=== PATIENT | female | born 1990 | race Caucasian/White ===

== ENCOUNTER 2022-01-26 02:10 | Day surgery (SDC) | payer SELFPAY ==
[2022-01-21 14:11] VITALS: BMI 21.7
--- NOTE | 2022-01-21 14:18 | PC.NURSE ---
Report to the Outpatient Waiting Room, entrance under the green pavilion located off [facility], at time 0830 on date 01/26/22. OR Time: 1030. - You and your visitor will be asked a series of questions to screen for COVID 19 for your protection. - Only one visitor is allowed at this time. - The patient visitor is requested to leave or wait in car when not with patient. - A mask is required within the hospital. Patients may have clear liquids (water, carbonated beverages, clear teas, apple juice) until 3 hours prior to surgery with a maximum of 20 ounces. - No food from midnight until time of surgery Take the following medications with a SIP of water the morning of surgery: KEPPRA Medications to discontinue per physician: N/A Date to take last dose: N/A Please no make-up, nail estonian, hairspray, perfume, deodorant, or body powder the day of surgery. No jewelry (including any body piercings) or valuables the day of surgery, leave them at home. Please take a shower or bath the night before, or the morning of, surgery with an antibacterial soap. Wear comfortable, loose fitting clothing. - Jewelry must be removed prior to entering the operating room. Rings and piercings that are not removed may be cut off. - The hospital will not accept responsibility for valuables. - Please leave all valuables, including medications, at home the day of surgery. If you are going home after surgery, a licensed spotter driver must drive you home. - NO public transportation without another adult. - We recommend that an adult stay with you for 24 hours following discharge. - We also recommend that you do not drive, make important decision, drink alcoholic beverages, or take any drugs that were not prescribed by your health care provider for at least 24 hours after your discharge time. Follow any additional instructions given to you from your surgeon. If you or anyone in your household have experienced Covid symptoms in the past week, please notify your surgeon or the nurse liaison at the phone number below for possible testing. Telephone instructions given to BERNA BEE and asked if any additional questions and then verbalized understanding. Patient advised to call surgeon office or pre surgery nurse liaison [phone] if any additional questions.
--- NOTE | 2022-01-25 18:05 | PM.IMHP ---
H&P: HPI History of Present Illness Date/Time: 01/26/22 09:10 Chief Complaint: Retained/malpositioned IUD Narrative: Mora is a 31yo P1001 who presented as a new patient for IUD removal. She is wanting to get again. She has been recently diagnosed w/?epilepsy; new in the last 2-3yrs. She is on Keppra BID and that controls her seizures; had 3 total. Still follows w/ neuro. 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 She had this with her last and did not have any issues. No current cardiac issues; still follows with cards and is due for valve replacement in 2024. She denies any issues w/ the IUD, still have regular cycles. No pain. The IUD was attempted to be removed (strings were visible) but was retained. US showed an arm of the IUD is noted to be in the lower uterine segment myometrium with the remaining IUD in the cervical canal. Review of Systems Review of Systems: All systems reviewed & are unremarkable except as noted in HPI and below (HPI) [facility] Past Medical History Medical History Epilepsy Infective endocarditis Surgical History Surgical History Heart valve replaced Social History Social History Tobacco type: e-cigarettes/vaping Alcohol intake: current Drinks per week: 7 Substance use: current Substance use type: marijuana Living arrangements: with family Spiritual care concerns: No Meds Home Medications and Allergies Home Medications Medication Instructions Recorded Confirmed Type levetiracetam 500 mg tablet 250 mg PO Q12H 12/18/21 01/26/22 History Allergies Allergy/AdvReac Type Severity Reaction Status Date / Time No Known Allergies Allergy Verified 01/26/22 08:46 Exam Const: General: cooperative, healthy appearing, comfortable and no acute distress Resp: Effort & Inspection: normal respiratory effort Cardio: Rate: regular rate GI: Inspection: normal to inspection and non-distended GI Palp: Yes Soft to palpation : Other: deferred to OR Skin: General skin exam: normal color Neuro: General: patient oriented x3 Extrem: General: normal to inspection Psych: Appearance: grossly normal Affect: normal affect Attitude: cooperative Assessment and Plan Assessment and plan (1) Attempted IUD removal, unsuccessful: Code(s): Z53.8 - Procedure and treatment not carried out for other reasons; Z97.5 - Presence of (intrauterine) contraceptive device Status: Acute Plan - IUD unable to be removed in the office due to it being embedded into the myometrium - Proceed with hysteroscopic removal of IUD in the OR - Risks and benefits explained in detail
[2022-01-26 08:42] VITALS: BP 128/95; PULSE 71; RESP 16; TEMP 36.2; O2SAT 100
--- NOTE | 2022-01-26 08:57 | WPDANESEPPF ---
Anes - Initial Pre Proc Eval Procedure: Operation Date: 01/26/22 10:30 Proposed Procedures p Hysteroscopy, Intrauterine Device Removal - Ambreen Fox MD Date/Time: 01/26/22 08:57 Surgeon: Ambreen Fox MD Pre Op Diagnosis: retained IUD Patient Data Age: 31 Gender: F Height: 1.55 m Weight: 51.1 kg Allergies Allergy/AdvReac Type Severity Reaction Status Date / Time No Known Allergies Allergy Verified 01/26/22 08:46 Home Medications Medication Instructions Recorded Confirmed Type levetiracetam 500 mg tablet 250 mg PO Q12H 12/18/21 01/26/22 History Patient hx anesthesia problems: none Family hx anesthesia problems: none Results Review: All pre-operative results and documents have been reviewed as part of the pre-operative evaluation. [facility] Past Medical History Medical History Epilepsy Infective endocarditis Surgical History Surgical History Heart valve replaced Social History Social History Tobacco type: e-cigarettes/vaping Alcohol intake: current Drinks per week: 7 Substance use: current Substance use type: marijuana Living arrangements: with family Spiritual care concerns: No Anes - Eval Final PreProcedure Day of Procedure 01/26/22 08:57 Patient weight: normal Heart: regular rate and rhythm Lungs: clear to auscultation Airway: Mallampati scale class II Neurological: alert and oriented Last oral intake: >/= 8 hours ASA classification: III Emergent: no Anesthetic plan: proceed Anesthesia type and monitoring: general GIVS and standard monitoring Results Review: All pre-operative results and documents have been reviewed as part of the pre-operative evaluation. Informed Consent: The patient's anesthetic plan and its attendant risks and benefits were discussed with the patient/family/POA. Questions were solicited and answers provided to the satisfaction of the patient/family/POA.
[2022-01-26] MEDS: LACTATED RINGERS 1,000 ML 30 ML IV CONT (09:02)
[2022-01-26] MEDS: ACETAMINOPHEN 500 MG TABLET 1000 MG PO (09:03)
--- NOTE | 2022-01-26 09:13 | WPDHPUPDATE1 ---
History and Physical Update Update Date/Time: 01/26/22 09:13 History and Physical has been reviewed, including an updated exam of the patient. There are NO changes in the patient's condition. Risks, benefits, and alternatives have been discussed and questions answered. Patient agrees to proceed with procedure.
[2022-01-26] MEDS: KETOROLAC 30 MG/ML VIAL (*BKC) IV PUSH (09:36)
--- NOTE | 2022-01-26 09:50 | PM.OP ---
Procedure Note - Brief Procedure Note - Brief Date of procedure: 01/26/22 Pre-op diagnosis: retained IUD Post-op diagnosis: Same Procedure performed: Hysteroscopic IUD removal Anesthesia: MAC Surgeon: Ambreen Fox MD Estimated blood loss (mL): 0 Drains: No Packing: No Pathology: None sent Complications: No immediate complications Condition: Stable Disposition: Same day
[2022-01-26 09:55] VITALS: BP 123/85; PULSE 62; RESP 12; O2SAT 100
--- NOTE | 2022-01-26 09:58 | W.PM.PROC2 ---
Procedure Note - Detailed Date of Procedure 01/26/22 Pre-op Diagnosis retained IUD Post-op Diagnosis Same Procedure Performed Hysteroscopic IUD removal Surgeon Ambreen Fox MD Anesthesia MAC Description of Procedure Mora was taken to the operating room where she was placed under sedation without complications. She was then prepped and draped in the usual sterile fashion in the dorsal lithotomy position with her legs in low vanesa stirrups. A time-out was performed and no preoperative antibiotics were indicated. A speculum was placed within the vagina where the IUD strings were visualized. The uterus was sounded to 7 cm. The cervix was serially dilated to allow for the hysteroscope. When dilating the cervix, the IUD was then visible. The strings were grasped with ring forceps and the IUD was easily removed. The IUD was examined and found to be intact without any missing parts. No bleeding was noted. Hysteroscope was advanced into the cervical canal and uterus and no abnormalities were noted. Bilateral tubal ostia were visualized. Sponge, lap, instrument, needle counts were correct at the end the procedure. Patient was awoken from sedation and taken recovery in a stable condition with plans of same-day discharge home. Estimated Blood Loss 0 Drains No Packing No Pathology None sent Complications No immediate complications Condition Stable Disposition Same day [facility] Billing Surgery - Charge Forward: Surgery Billing
[2022-01-26 10:25] VITALS: BP 131/87; PULSE 58; RESP 12
[2022-01-26 10:55] VITALS: BP 142/88; PULSE 59; RESP 16
== END 2022-01-26 11:10 | disposition home or self-care (01) ==
PROVIDERS: PCP Family Medicine; Visit Provider Obstetrics & Gynecology
PROC: 0U5B8ZZ Destruction of Endometrium, Via Natural or Artificial Opening Endoscopic (ICD-10-PCS; CPT 58563; principal; 2022-01-26 10:30)
DX: T83.39XA Other mechanical complication of intrauterine contraceptive device, initial encounter (principal); Y84.8 Other medical procedures as the cause of abnormal reaction of the patient, or of later complication, without mention of misadventure at the time of the procedure; G40.909 Epilepsy, unspecified, not intractable, without status epilepticus; Z95.4 Presence of other heart-valve replacement; F17.290 Nicotine dependence, other tobacco product, uncomplicated; F12.90 Cannabis use, unspecified, uncomplicated
CPT/HCPCS: 58562; A9270; J1885; J2250; J2704; J3010; J7030; J7120

== ENCOUNTER 2022-06-25 13:32 | Emergency (ER) | payer OTHER, SELFPAY ==
--- NOTE | 2022-06-25 13:35 | ED.URI ---
HPI - URI/Sore Throat General Stated Complaint: loss of voice, coughing Time Seen by Provider: 06/25/22 13:35 Source: patient and RN notes reviewed History of Present Illness HPI Narrative: Patient is a 31-year-old female who presents to urgent care with complaints of cough, loss of voice and sore throat. Patient also reports of body aches, headache and fatigue. Patient states that she has been taking Tylenol and using cough drops however she is 18 weeks . Patient states her main concern is getting a work note. Patient is aware that she is likely positive for influenza A considering her daughter was positive on Wednesday. No other acute complaints. No acute distress noted. Patient aware plan of care. Some parts of this dictation were generated by voice recognition software and may contain typographical and/or grammatical inaccuracies. Related Data Home Medications Medication Instructions Recorded Confirmed levetiracetam 500 mg tablet 250 mg PO Q12H 12/18/21 05/13/22 vits no.130-ferrous fum tablet 06/25/22 06/25/22 27 mg iron-folic acid 800 mcg tablet ( Vitamin) Allergies Allergy/AdvReac Type Severity Reaction Status Date / Time No Known Allergies Allergy Verified 06/25/22 14:00 Review of Systems Review of Systems: CONSTITUTIONAL: reports of low-grade fevers EYES: Denies visual changes, redness, or discharge. ENT: Reports a postnasal drainage, sore throat, voice loss CARDIOVASCULAR: Denies chest pain, palpitations, or edema. RESPIRATORY: reports of cough GASTROINTESTINAL: Denies abdominal pain, nausea, vomiting, or diarrhea. GENITOURINARY: Denies dysuria or hematuria. SKIN: Denies rash or itching. MUSCULOSKELETAL: Denies back pain, joint pain. Reports body aches NEUROLOGIC: reports of headache All other systems reviewed are negative, except as documented in HPI. [facility] Past Medical History Medical History (Updated 06/25/22 @ 14:10 by JACKIE Aguero) Epilepsy Infective endocarditis Surgical History Surgical History Heart valve replaced History of hysteroscopy (01/26/22) hysteroscopy iud removal Social History Social History (Updated 04/14/22 @ 08:15 by Yue Krause MA) Smoking status: Unknown if ever smoked Tobacco type: e-cigarettes/vaping Alcohol intake: current Drinks per week: 0 Substance use: former Substance use type: marijuana Spiritual care concerns: No Comments At the time of my signature, I reviewed and agree with the nursing past medical, surgical, social, and family history. There is no relevant family history pertinent to the patient complaint. Exam Narrative: GENERAL: This is a well-nourished, well-developed patient. Appears fatigued HEAD: normocephalic, atraumatic. EYES: PERRL. Sclera clear/white. Vision is grossly intact. EARS: External ears normal, auditory canals clear and without drainage, TMs normal without perforation. Hearing grossly intact. NOSE: External nose normal with no obvious nasal discharge, nares without redness, clearrhinorrhea. THROAT: Mucous membranes moist, moderate postnasal drainage. Notable hoarseness NECK: Neck supple, non-tender without lymphadenopathy CARDIOVASCULAR: Regular rate and rhythm without murmurs, gallops, or rubs. RESPIRATORY: Clear to auscultation. Breath sounds equal bilaterally. No wheezes, rales, or rhonchi. SKIN: warm, intact with no suspicious lesions or rash, good texture and turgor. NEURO: awake, alert, and oriented to person, place and time. There were no obvious focal neurologic abnormalities. EXTREMITIES: No clubbing, cyanosis, or edema. Course Course Level of Care: Express Care Visit Vital Signs Vital signs: Vital Signs Temperature 98.3 F 06/25/22 13:40 Pulse Rate 81 06/25/22 13:40 Respiratory Rate 14 06/25/22 13:40 Blood Pressure 119/87 06/25/22 13:40 Pulse Oximetry 100 06/25/22 13:40 Ox
[2022-06-25 13:40] VITALS: BP 119/87; PULSE 81; RESP 14; TEMP 36.8; O2SAT 100
== END 2022-06-25 14:10 | disposition home or self-care (01) ==
PROVIDERS: Emergency Provider Nurse Practitioner Family; PCP Family Medicine
DX: O98.512 Other viral diseases complicating pregnancy, second trimester (principal); B34.9 Viral infection, unspecified; Z3A.18 18 weeks gestation of pregnancy; Z20.828 Contact with and (suspected) exposure to other viral communicable diseases; O99.352 Diseases of the nervous system complicating pregnancy, second trimester; G40.909 Epilepsy, unspecified, not intractable, without status epilepticus; Z95.2 Presence of prosthetic heart valve
CPT/HCPCS: 99211; G0463

== ENCOUNTER 2022-09-07 14:29 | Emergency (ER) | payer OTHER, SELFPAY ==
[2022-09-07 14:34] VITALS: BP 109/76; PULSE 103; RESP 16; TEMP 36.7; O2SAT 100
--- NOTE | 2022-09-07 14:50 | ED.URI ---
HPI - URI/Sore Throat General Chief Complaint: Upper Respiratory Infection Stated Complaint: sinus infection Source: patient and RN notes reviewed Mode of arrival: ambulatory History of Present Illness HPI Narrative: 31-year-old female presents to ED with complaints of sinus congestion and pressure for last 2 weeks. Patient states she developed a headache approximately. Patient is currently 7 months . Patient has used a Neti pot at home along with Tylenol with minimal relief. Patient denies sore throat, ear pain chest pain, shortness of breath no vomiting. 2 para 1. Some parts of this dictation were generated by voice recognition software and may contain typographical and/or grammatical inaccuracies. Related Data Home Medications Medication Instructions Recorded Confirmed levetiracetam 500 mg tablet 250 mg PO Q12H 12/18/21 09/07/22 vits no.130-ferrous fum 1 tablet PO DAILY 06/25/22 09/07/22 27 mg iron-folic acid 800 mcg tablet ( Vitamin) citalopram 20 mg tablet 20 mg PO DIRECTED 09/07/22 09/07/22 Allergies Allergy/AdvReac Type Severity Reaction Status Date / Time No Known Allergies Allergy Verified 06/25/22 14:00 Review of Systems Review of Systems: CONSTITUTIONAL: Denies fever, chills, or sweats. EYES: Denies visual changes, redness, or discharge. ENT: Denies otalgia and sore throat CARDIOVASCULAR: Denies chest pain, palpitations, or edema. RESPIRATORY: Denies cough or dyspnea. GASTROINTESTINAL: Denies abdominal pain, nausea, vomiting, or diarrhea. GENITOURINARY: Denies dysuria or hematuria. SKIN: Denies rash or itching. MUSCULOSKELETAL: Denies back pain, joint pain, or myalgia. NEUROLOGIC: Reports headache. [facility] Past Medical History Medical History (Updated 09/07/22 @ 14:54 by Ewa Moran APRN) Epilepsy Infective endocarditis Surgical History Surgical History Heart valve replaced History of hysteroscopy (01/26/22) hysteroscopy iud removal Social History Social History (Updated 04/14/22 @ 08:15 by Yue Krause MA) Smoking status: Unknown if ever smoked Tobacco type: e-cigarettes/vaping Alcohol intake: current Drinks per week: 0 Substance use: former Substance use type: marijuana Living arrangements: with family Spiritual care concerns: No Comments At the time of my signature, I reviewed and agree with the nursing past medical, surgical, social, and family history. There is no relevant family history pertinent to the patient complaint. Exam Narrative: GENERAL: This is a well-nourished, well-developed patient, in no apparent distress. HEAD: normocephalic, atraumatic. EYES: PERRL. Sclera clear/white. Vision is grossly intact. EARS: External ears normal, auditory canals clear and without drainage, TMs normal without perforation. Hearing grossly intact. NOSE: congestion THROAT: Mucous membranes moist, posterior pharynx clear. NECK: Neck supple, non-tender without lymphadenopathy, masses or thyromegaly. CARDIOVASCULAR: Regular rate and rhythm without murmurs, gallops, or rubs. RESPIRATORY: Clear to auscultation. Breath sounds equal bilaterally. No wheezes, rales, or rhonchi. SKIN: warm, intact with no suspicious lesions or rash, good texture and turgor. NEURO: awake, alert, and oriented to person, place and time. There were no obvious focal neurologic abnormalities. Course Course Level of Care: Express Care Visit Vital Signs Vital signs: Vital Signs Temperature 98.1 F 09/07/22 14:34 Pulse Rate 103 H 09/07/22 14:34 Respiratory Rate 16 09/07/22 14:34 Blood Pressure 109/76 09/07/22 14:34 Pulse Oximetry 100 09/07/22 14:34 Oxygen Delivery Room Air 09/07/22 14:34 Temperature 98.1 F 09/07/22 14:34 Pulse Rate 103 H 09/07/22 14:34 Respiratory Rate 16 09/07/22 14:34 Blood Pressure 109/76 09/07/22 14:34 Pulse Oximetry 100 09/07/22 14:34
== END 2022-09-07 14:58 | disposition home or self-care (01) ==
PROVIDERS: Emergency Provider Nurse Practitioner Family; PCP Family Medicine
DX: O99.513 Diseases of the respiratory system complicating pregnancy, third trimester (principal); Z3A.28 28 weeks gestation of pregnancy; J01.00 Acute maxillary sinusitis, unspecified; O99.353 Diseases of the nervous system complicating pregnancy, third trimester; G40.909 Epilepsy, unspecified, not intractable, without status epilepticus
CPT/HCPCS: 99213; G0463

== ENCOUNTER 2022-10-27 09:05 | Emergency (ER) | payer OTHER, SELFPAY ==
[2022-10-27 09:11] VITALS: BP 102/80; PULSE 102; RESP 16; TEMP 36.3; O2SAT 100
--- NOTE | 2022-10-27 09:29 | ED.GENADULT ---
HPI - General Adult General Chief complaint: Upper Respiratory Infection Stated complaint: Shortness of Breath/Cough Source: patient and family Mode of arrival: ambulatory History of Present Illness HPI narrative: Patient presents for evaluation of sick symptoms for approximately 1 week. Symptoms include sore throat, mild bilateral otalgia, cough and pleuritic chest pain. Denies chest pain otherwise. No fever, chills, nausea, vomiting, diarrhea. Her daughter was here last Wednesday and tested positive for strep pharyngitis. She had COVID in July 2022. She also had flu this flu season. She is currently , 36 weeks gestation. No abdominal pain or vaginal bleeding. Related Data Home Medications Medication Instructions Recorded Confirmed levetiracetam 500 mg tablet 250 mg PO Q12H 12/18/21 10/27/22 vits no.130-ferrous fum 1 tablet PO DAILY 06/25/22 09/07/22 27 mg iron-folic acid 800 mcg tablet ( Vitamin) citalopram 20 mg tablet 20 mg PO DIRECTED 09/07/22 10/27/22 Allergies Allergy/AdvReac Type Severity Reaction Status Date / Time No Known Allergies Allergy Verified 10/27/22 09:14 Review of Systems Review of Systems: CONSTITUTIONAL: Denies fever, chills, or sweats. EYES: Denies visual changes, redness, or discharge. ENT:Reports sore throat and bilateral otalgia. CARDIOVASCULAR: Reports pleuritic chest pain. Denies chest pain otherwise. Denies palpitations, or edema. RESPIRATORY: Denies cough or dyspnea. GASTROINTESTINAL: Denies abdominal pain, nausea, vomiting, or diarrhea. GENITOURINARY: Denies dysuria or hematuria. SKIN: Denies rash or itching. MUSCULOSKELETAL: Denies back pain, joint pain, or myalgia. NEUROLOGIC: Denies headache, numbness, dizziness, or weakness. PSYCHIATRIC: Denies anxiety or depression. [facility] Past Medical History Medical History Epilepsy Infective endocarditis Surgical History Surgical History Heart valve replaced History of hysteroscopy (01/26/22) hysteroscopy iud removal Family History Family History Mother Family history non-contributory Social History Social History Drinks per week: 0 Substance use: former Substance use type: marijuana Living arrangements: with family Gender identity (if verbalized by the patient): Female Sexual Orientation (if Verbalized by the Patient): Straight or Heterosexual Spiritual care concerns: No Exam Narrative: GENERAL: Well-appearing, well-nourished, and in no acute distress. HEAD: Normocephalic, atraumatic. EYES: PERRLA and EOMI. ENT: Nares clear, no rhinorrhea or epistaxis. Mucous membranes moist. There is posterior pharyngeal erythema without exudate. Uvula is midline. Bilateral TMs pearly tamayo nonbulging NECK: Supple. No adenopathy or masses. No carotid bruits or JVD CHEST: Clear to auscultation. No respiratory distress. No wheezes rales or rhonchi HEART: Regular rate and rhythm. No murmur heard. Normal peripheral pulses. ABDOMEN: Soft, nontender, nondistended, normal active bowel sounds. EXTREMITIES: Normal range of motion. No edema. SKIN: Warm, dry, no rash. NEURO: No focal deficits. Alert and oriented x3. PSYCH: Normal mood and affect. Course Course Emergency Course: This is a 32-year-old female who presented for evaluation of sick symptoms. COVID, strep, influenza were all negative. Based on exposure she would like to be treated for strep. I also did offer to wait to initiate therapy until throat culture results. She should follow up outpatient for further evaluation treatment and go to the ER for worsening symptoms. Patient in agreement with plan of care Level of Care: Express Care Visit Vital Signs Vital signs: Vital Signs [place]
== END 2022-10-27 10:01 | disposition home or self-care (01) ==
PROVIDERS: Emergency Provider Nurse Practitioner; PCP Family Medicine
DX: J02.9 Acute pharyngitis, unspecified (principal); R06.02 Shortness of breath; R05.9 Cough, unspecified; R07.89 Other chest pain; Z20.822 Contact with and (suspected) exposure to COVID-19
CPT/HCPCS: 87081; 87426; 87804; 87880; 99213; C9803; G0463

== ENCOUNTER 2023-09-03 08:23 | Emergency (ER) | payer OTHER, SELFPAY ==
[2023-09-03 08:30] VITALS: BP 137/92; PULSE 113; RESP 16; TEMP 36.4; O2SAT 100
--- NOTE | 2023-09-03 09:00 | ED.URI ---
HPI - URI/Sore Throat General Chief Complaint: Upper Respiratory Infection Stated Complaint: flu like symptoms Time Seen by Provider: 09/03/23 09:00 Source: patient, RN notes reviewed and old records reviewed Mode of arrival: ambulatory Limitations: no limitations History of Present Illness HPI Narrative: 32 [facility] of nausea, vomiting and body aches, some sore throat for 2 days with cough for 2 weeks.Patient reports that she has been taking Tylenol and Ibuprofen for her symptoms, did have fever up 102.5F last night, Patient reports that she has been COVID vaccinated and did have flu shot this season.Patient reports heart valve replaced 10 years ago due to infection. MD elicited complaint: fever, cough, sore throat and other (nausea vomiting, body aches) Onset (ago): day(s) (2 days nausea and vomiting fever, with cough 2 weeks) Severity: moderate Able to tolerate fluids by mouth: Yes Treatments prior to arrival: acetaminophen and ibuprofen Related Data Home Medications Medication Instructions Recorded Confirmed citalopram 20 mg tablet 20 mg PO DIRECTED 09/07/22 09/03/23 levetiracetam 500 mg tablet 500 mg PO Q12H 12/07/22 09/03/23 Allergies Allergy/AdvReac Type Severity Reaction Status Date / Time No Known Allergies Allergy Verified 09/03/23 08:36 Review of Systems Review of Systems: CONSTITUTIONAL: Reports malaise, chills, sweats, or fever. EYES: Denies visual changes, redness, or discharge. ENT: Reports rhinorrhea, congestion,no sinus pain,no otalgia and some sore throat. CARDIOVASCULAR: Denies chest pain, palpitations, or edema. RESPIRATORY: Reports cough.? Denies dyspnea. GASTROINTESTINAL: Denies abdominal pain, positive for nausea, vomiting, no diarrhea SKIN: Denies rash or itching. MUSCULOSKELETAL: Reports myalgia. NEUROLOGIC: No headache. All systems reviewed & are unremarkable except as noted in HPI and below PMFSH Past Medical History Medical History Epilepsy Infective endocarditis Surgical History Surgical History Heart valve replaced History of hysteroscopy (01/26/22) hysteroscopy iud removal Family History Family History Mother Family history non-contributory Social History Social History (Updated 09/04/23 @ 11:06 by Tenisha Carrington NP) Smoking status: Former smoker Drinks per week: 0 Substance use: former Last use: Clean for 10 years Lack of Transportation: No Lack of Food: Never True Current Housing: I Have Housing Concerned About Future Housing: No Difficulty Paying Gas/Electric Bills: No Difficulty Paying for Meds: No Currently Unemployed: No Education: Associate Degree Difficulty w/ Childcare or Family Care: No Living arrangements: with family Occupation/Education: occupation Additional occupation/education comments: retail Gender identity (if verbalized by the patient): Female Sexual Orientation (if Verbalized by the Patient): Straight or Heterosexual Spiritual care concerns: No Comments At time of signature, agree with nursing past medical, surgical, social and family history. There is no relevant family history pertinent to the presenting complaint Exam Narrative: GENERAL: Well-appearing, well-nourished, and in no acute distress. HEAD: Normocephalic EYES: PERRLA, conjunctivae clear ENT: Nares clear, turbinates edematous and erythematous, clear discharge. Mucous membranes moist. TM pearly tamayo with dull light reflex bilaterally; no tragal tenderness. Oropharynx erythematous without lesions. Tonsils not enlarged and without exudate, no drooling, no hoarseness, no trismus, uvula midline.post nasal drainage. NECK: Supple. No lymphadenopathy CHEST: Clear to auscultation, breath sounds equal. No wheezing, rhonch
== END 2023-09-03 09:20 | disposition home or self-care (01) ==
PROVIDERS: Emergency Provider Registered Nurse; PCP Family Medicine
DX: J06.9 Acute upper respiratory infection, unspecified (principal); R05.9 Cough, unspecified; R11.2 Nausea with vomiting, unspecified; Z20.822 Contact with and (suspected) exposure to COVID-19; Z87.891 Personal history of nicotine dependence; G40.909 Epilepsy, unspecified, not intractable, without status epilepticus; Z95.2 Presence of prosthetic heart valve
CPT/HCPCS: 87081; 87426; 87804; 87880; 99213; G0463